=== PATIENT | female | born 1975 | race African-American/Black ===

== ENCOUNTER 2020-08-01 10:48 | Inpatient (IN) | payer OTHER ==
[~2020-08-01] VITALS: Ht 175.3 cm; Wt 101.8 kg
[2020-08-01 11:18] LABS: BILIRUBIN,URINE NEGATIVE (NEG); CLARITY,URINE CLEAR; COLOR,URINE YELLOW; NITRITE,URINE NEGATIVE (NEG); PROTEIN,URINE NEGATIVE (NEG-TRACE); UROBILINOGEN,URINE 0.2 mg/dL (0.2 mg/dL)
[2020-08-01 11:44] LABS: BASO % 0 % (0-3); EOS % 0 % (0-3); HEMATOCRIT 36.4 % (36.0-47.0); HEMOGLOBIN 12.7 g/dL (12.0-15.5); LYMPH # 1.8 x10^3/uL (1.0-4.8); LYMPH % 41 % (24-48); MEAN CORPUSCULAR HEMOGLOBIN 30 pg (25-35); MEAN CORPUSCULAR HGB CONC 35 g/dL (31-37); MEAN CORPUSCULAR VOLUME 85 fL (79-100); MONO # 0.4 x10^3/uL (0.0-1.1); MONO % 8 % (0-9); NEUT # 2.2 x10^3/uL (1.8-7.7); NEUT % 51 % (31-73); PLATELET COUNT 228 x10^3/uL (140-400); RED CELL DISTRIBUTION WIDTH 12.9 % (11.5-14.5); WHITE BLOOD COUNT 4.3 x10^3/uL (4.0-11.0)
[2020-08-01] MEDS ORDERED: PANTOPRAZOLE IV PUSH 40 MG VIAL. IVP ONE (11:45)
[2020-08-01] MEDS ORDERED: fentaNYL PF VIAL 100 MCG/2 ML VIAL IVP ONE (11:45)
--- NOTE | 2020-08-01 11:58 | RAD ---
EXAM: Abdomen acute complete. HISTORY: Pain. COMPARISON: CT dated 07/30/2020. FINDINGS: A frontal view of the chest and frontal upright and supine views of the abdomen are obtaine d. There is no infiltrate, pleural effusion or pneumothorax. The heart is normal in size. There is a small amount of gas within nondistended loops of bowel. There is no bowel obstruction. There is no fr ee air. IMPRESSION: 1. No acute pulmonary finding. 2. Nonobstructive bowel gas pattern. Electronically signed by: Samia Desir MD (08/01/2020 11:55 AM) [id number]
[2020-08-01 12:02] LABS: BACTERIA,URINE 0 /HPF (0-FEW); RBC,URINE 0 /HPF (0-2); WBC,URINE 0 /HPF (0-4)
[2020-08-01 12:11] LABS: PROTHROMBIN TIME PATIENT 13.1 SEC (11.7-14.0)
--- NOTE | 2020-08-01 12:38 | PHYS DOC ---
Past Medical History Past Medical History: Migraines Past Surgical History: , Hysterectomy Smoking Status: Never Smoker Alcohol Use: None General Adult EDM: Chief Complaint: GI PROBLEM HPI: HPI: Patient is a 45 year old female who presented to ER due to 4-day history of epigastric abdominal pain, associated with vomiting blood. Patient was seen at [place] [facility] on July 30 for the same problem, CT scan of her abdomen pelvis did not show any acute problem. Patient was discharged home with Carafate and Adela nix. Patient has been taking the medication but did not get any better, patient went to see her family doctor today who then sent her here for further evaluation and treatment. Patient denies any chest pain, no trouble breathing. Patient is not on any blood thinner. Review of Systems: Review of Systems: Constitutional: Denies fever or chills. [] Eyes: Denies change in visual acuity. [] HENT: Denies nasal congestion or sore throat. [] Respiratory: Denies cough or shortness of breath. [] Cardiovascular: Denies chest pain or edema. [] GI: Positive for epigastric abdominal pain with nausea vomiting, no diarrhea. : Denies dysuria. [] Musculoskeletal: Denies back pain or joint pain. [] Integument: Denies rash. [] Neurologic: Denies headache, focal weakness or sensory changes. [] Endocrine: Denies polyuria or polydipsia. [] Lymphatic: Denies swollen glands. [] Psychiatric: Denies depression or anxiety. [] Heart Score: C/O Chest Pain: N/A Risk Factors: Risk Factors: DM, Current or recent (<one month) smoker, HTN, HLP, family history of CAD, obesity. Risk Scores: Score 0 - 3: 2.5% MACE over next 6 weeks - Discharge Home Score 4 - 6: 20.3% MACE over next 6 weeks - Admit for Clinical Observation Score 7 - 10: 72.7% MACE over next 6 weeks - Early Invasive Strategies Current Medications: Current Medications Medications (Trade) Dose Ordered Sig/Jennifer Start Time Stop Time Status Last Admin Dose Admin Fentanyl Citrate (Fentanyl 2ml Vial) 75 mcg 1X ONCE 08/01/20 11:45 08/01/20 11:46 DC Pantoprazole Sodium (PROTONIX VIAL for IV PUSH) 40 mg 1X ONCE 08/01/20 11:45 08/01/20 11:46 DC Allergies: Allergies: Allergies Coded Allergies Type Severity Reaction Last Updated Verified Sulfa (Sulfonamide Antibiotics) Allergy Severe ANAPHALAXIS 08/01/20 Yes Wmtepcv-Nwz-Ymx Reductase Inhibitor Allergy Intermediate MUSCLE PAIN 08/01/20 Yes morphine Adverse Reaction Intermediate VOMIT 08/01/20 Yes Physical Exam: PE: Constitutional: Well developed, well nourished, no acute distress, non-toxic appearance. [] HENT: Normocephalic, atraumatic, bilateral external ears normal, oropharynx moist, no oral exudates, nose normal. [] Eyes: PERRLA, EOMI, conjunctiva normal, no discharge. [] Neck: Normal range of motion, no tenderness, supple, no stridor. [] Cardiovascular:Heart rate regular rhythm, no murmur [] Lungs & Thorax: Bilateral breath sounds clear to auscultation [] Abdomen: Bowel sounds normal, soft, there is tenderness in epigastric area, no masses, no pulsatile masses. [] Skin: Warm, dry, no erythema, no rash. [] Back: No tenderness, no CVA tenderness. [] Extremities: No tenderness, no cyanosis, no clubbing, ROM intact, no edema. [] Neurologic: Alert and oriented X 3, normal motor function, normal sensory function, no focal deficits noted. [] Psychologic: Affect normal, judgement normal, mood normal. [] Current Patient Data: Labs: Laboratory Tests Test 08/01/20 11:04 08/01/20 11:34 Urine Collection Type Void Urine Color Yellow Urine Clarity Clear Urine pH 7.0 (<5.0-8.0) Urine Specific [place] <=1.005 (1.000-1.030) Urine Protein Negative mg/dL (NEG-TRACE) Urine Glucose (UA) Negative mg/dL (NEG) Urine Ketones (Stick) Negative mg/dL (NEG) Urine Blood Negative (NEG) Urine Nitrite Negative (NEG) Urine Bilirubin Negative (NEG) Urine Urobilinogen Dipstick 0.2 mg/dL (0.2 mg/dL) Urine Leukocyte Esterase Negative (NEG) Urine RBC 0 /HPF (0-2) Urine WBC 0 /HPF (0-4) Urine Squamous Epithelial Cells Mod /LPF Urine Bacteria 0 /HPF (0-FEW) White Blood Count 4.3 x10^3/uL (4.0-11.0) Red Blood Count 4.30 x10^6/uL (3.50-5.40) Hemoglobin 12.7 g/dL (12.0-15.5) Hematocrit 36.4 % (36.0-47.0) Mean Corpuscular Volume 85 fL (79-100) Mean Corpuscular Hemoglobin 30 pg (25-35) Mean Corpuscular Hemoglobin Concent 35 g/dL (31-37) Red Cell Distribution Width 12.9 % (11.5-14.5) Platelet Count 228 x10^3/uL (140-400) Neutrophils (%) (Auto) 51 % (31-73) Lymphocytes (%) (Auto) 41 % (24-48) Monocytes (%) (Auto) 8 % (0-9) Eosinophils (%) (Auto) 0 % (0-3) Basophils (%) (Auto) 0 % (0-3) Neutrophils # (Auto) 2.2 x10^3/uL (1.8-7.7) Lymphocytes # (Auto) 1.8 x10^3/uL (1.0-4.8) Monocytes # (Auto) 0.4 x10^3/uL (0.0-1.1) Eosinophils # (Auto) 0.0 x10^3/uL (0.0-0.7) Basophils # (Auto) 0.0 x10^3/uL (0.0-0.2) Prothrombin Time 13.1 SEC (11.7-14.0) Prothrombin Time INR 1.0 (0.8-1.1) Activated Partial Thromboplast Time 28 SEC (24-38) Laboratory Tests 08/01/20 11:34 Vital Signs: Vital Signs Date Time Temp Pulse Resp B/P (MAP) Pulse Ox O2 Delivery O2 Flow Rate FiO2 08/01/20 11:20 97.9 69 18 142/76 (98) 97 Room Air 97.9 EKG: EKG: [] Radiology/Procedures: Radiology/Procedures: [][address] [address] IMAGING REPORT Signed PATIENT: MYRANDA YO JACCOUNT: [id number] : 1975 LOCATION: ER AGE: 45 SEX: F EXAM STATUS: REG ER ORD. PHYSICIAN: GARRETT MARTÍNEZ MD REASON: hematemsis PROCEDURE: CT ABD PELV W/ IV CONTRST ONLY CT abdomen pelvis with contrast. HISTORY: Hematemesis CT scan the abdomen pelvis was done using 75 mL Omnipaque contrast. Lung bases are clear. There is no effusion. There is a tiny cysts in the left liver. There is mild fatty change in the liver. No other liver lesion is noted. Spleen is generous in size without a focal lesion. Adrenal glands and pancreas are normal. There is no mass or hydronephrosis in the kidneys. Appendix is normal. There are phleboliths in the pelvis. A ureteral calculus is not identified. Patient's had a hysterectomy. There is a tiny cyst or follicle in the left ovary less than a centimeter. There is no free air or free fluid. There is no definite abnormality noted in the stomach. There is no small bowel obstruction. IMPRESSION: 1. Fatty change in the liver. 2. No abdominal or pelvic mass or other acute finding. 3. Normal appendix. 4. No bowel obstruction. 5. No definite abnormality in the stomach. PQRS Compliance Statement: One or more of the following individualized dose reduction techniques were utilized for this examination: 1. Automated exposure control 2. Adjustment of the mA and/or kV according to patient size 3. Use of iterative reconstruction technique Electronically signed by: Shmuel Dumont MD (07/30/2020 4:45 PM) [id number] DICTATED AND SIGNED BY: SHMUEL DUMONT MD DATE: 07/30/20 1635 CC: GARRETT MARTÍNEZ MD; GLORY MONTEIRO [employer] ~MTH0 0 Course & Med Decision Making: Course & Med Decision Making Pertinent Labs and Imaging studies reviewed. (See chart for details) Patient is a 45-year-old female with intractable epigastric abdominal pain, vomiting blood, her hemoglobin actually normal here. Due to her pain, patient be admitted to hospital for GI evaluation. Discussed with hospitalist on-call Dr. Montero who agrees to admit the patient Dragon Disclaimer: Dragon Disclaimer: This electronic medical record was generated, in whole or in part, using a voice recognition dictation system. Departure Departure Impression: Primary Impression: Abdominal pain Additional Impression: Gastritis Disposition: ADMITTED INPT THIS HOSP Admitting Physician: PROMISE (DR. MONETRO) Condition: STABLE Referrals: DALIA AHMADI MD (PCP) TANNER GUNTER DO Aug 01, 2020 12:37
[2020-08-01 12:41] LABS: CREATININE 0.8 mg/dL (0.6-1.0); POTASSIUM 3.8 mmol/L (3.5-5.1)
[2020-08-01 12:48] LABS: ALBUMIN 3.8 g/dL (3.4-5.0); ALBUMIN/GLOBULIN RATIO 1.2 (1.0-1.7); TOTAL BILIRUBIN 0.3 mg/dL (0.2-1.0); TOTAL PROTEIN 7.1 g/dL (6.4-8.2)
[2020-08-01] MEDS ORDERED: fentaNYL PF VIAL 100 MCG/2 ML VIAL IV PRN (13:30)
[2020-08-01] MEDS ORDERED: ONDANSETRON PF 4 MG/2 ML VIAL. IV PRN (13:30)
--- NOTE | 2020-08-01 14:38 | PDOC2 ---
GI CONSULT Date of Service: DATE: 08/01/20 TIME: 14:24 Reason For Consult: epigastric abd pain HPI: HPI: 45 y/o female admitted through ER. [place] sluggish and yucky on Wednesday, then increasingly nauseated Wednesday. No precipitating events. That day, vomited several times - first pinkish, then more red, then very red blood. [place] very weak. Associated w/ pain under left breast radiating into left chest. Pain is stabbing but waxing and waning in intensity. Worst after eating toast this morning. Ongoing nausea. Had one loose stool this morning - no hematochezia or melena. Decreased appetite w/o weight loss for awhile. Rare heartburn after eating certain foods - none recently. Denies dysphagia/odynophagia (though other notes mention dysphagia), chronic n/v or abd pain, diarrhea, or constipation. No previous EGD or colonoscopy. Was told she had a gallstone once but reports a couple ultrasounds since have shown normal GB. No pancreas, liver, or PUD history. Occasional ibuprofen or Tylenol for headahces. [facility] yesterday. Reports CT "ruled out major GI bleed" (I cannot view report - ER note says no acute issues noted) and was discharge home w/ Protonix and Carafate. Follow-up w/ PCP today, concern w/ ongoing symptoms, advised to come here. She says she also called our office and was advised to come to [facility] ER. PMH: PMH: ?high cholesterol, migraines, chronic idiopathic urticaria (on Xolair) x 1, hysterectomy w/ left oophorectomy (on Effexor and estrogen since this), ablations for endometriosis FH: Family History: No pertinent hx (denies GI cancers) Social History: Smoke: No ALCOHOL: none Drugs: None ROS: GEN: Denies fevers, chills, sweats HEENT: Denies blurred vision, sore throat CV: Denies chest pain RESP: Denies shortness of air, cough GI: Per HPI : Denies hematuria, dysuria ENDO: Denies weight changes NEURO: Denies confusion, dizziness MSK: Denies weakness, joint pain/swelling SKIN: Denies jaundice, pruritus Vitals: Vitals: Vital Signs Date Time Temp Pulse Resp B/P (MAP) Pulse Ox O2 Delivery O2 Flow Rate FiO2 08/01/20 13:07 68 18 133/66 (88) 97 Room Air 08/01/20 11:20 97.9 97.9 Labs: Labs: Laboratory Tests Test 08/01/20 11:04 08/01/20 11:34 Urine Collection Type Void Urine Color Yellow Urine Clarity Clear Urine pH 7.0 (<5.0-8.0) Urine Specific [place] <=1.005 (1.000-1.030) Urine Protein Negative mg/dL (NEG-TRACE) Urine Glucose (UA) Negative mg/dL (NEG) Urine Ketones (Stick) Negative mg/dL (NEG) Urine Blood Negative (NEG) Urine Nitrite Negative (NEG) Urine Bilirubin Negative (NEG) Urine Urobilinogen Dipstick 0.2 mg/dL (0.2 mg/dL) Urine Leukocyte Esterase Negative (NEG) Urine RBC 0 /HPF (0-2) Urine WBC 0 /HPF (0-4) Urine Squamous Epithelial Cells Mod /LPF Urine Bacteria 0 /HPF (0-FEW) White Blood Count 4.3 x10^3/uL (4.0-11.0) Red Blood Count 4.30 x10^6/uL (3.50-5.40) Hemoglobin 12.7 g/dL (12.0-15.5) Hematocrit 36.4 % (36.0-47.0) Mean Corpuscular Volume 85 fL (79-100) Mean Corpuscular Hemoglobin 30 pg (25-35) Mean Corpuscular Hemoglobin Concent 35 g/dL (31-37) Red Cell Distribution Width 12.9 % (11.5-14.5) Platelet Count 228 x10^3/uL (140-400) Neutrophils (%) (Auto) 51 % (31-73) Lymphocytes (%) (Auto) 41 % (24-48) Monocytes (%) (Auto) 8 % (0-9) Eosinophils (%) (Auto) 0 % (0-3) Basophils (%) (Auto) 0 % (0-3) Neutrophils # (Auto) 2.2 x10^3/uL (1.8-7.7) Lymphocytes # (Auto) 1.8 x10^3/uL (1.0-4.8) Monocytes # (Auto) 0.4 x10^3/uL (0.0-1.1) Eosinophils # (Auto) 0.0 x10^3/uL (0.0-0.7) Basophils # (Auto) 0.0 x10^3/uL (0.0-0.2) Prothrombin Time 13.1 SEC (11.7-14.0) Prothromb Time International Ratio 1.0 (0.8-1.1) Activated Partial Thromboplast Time 28 SEC (24-38) Sodium Level 138 mmol/L (136-145) Potassium Level 3.8 mmol/L (3.5-5.1) Chloride Level 104 mmol/L (98-107) Carbon Dioxide Level 28 mmol/L (21-32) Anion Gap 6 (6-14) Blood Urea Nitrogen 14 mg/dL (7-20) Creatinine 0.8 mg/dL (0.6-1.0) Estimated GFR (Cockcroft-Gault) 93.0 BUN/Creatinine Ratio 18 (6-20) Glucose Level 86 mg/dL (70-99) Calcium Level 9.0 mg/dL (8.5-10.1) Total Bilirubin 0.3 mg/dL (0.2-1.0) Aspartate Amino Transf (AST/SGOT) 26 U/L (15-37) Alanine Aminotransferase (ALT/SGPT) 63 U/L (14-59) Alkaline Phosphatase 67 U/L (46-116) Total Protein 7.1 g/dL (6.4-8.2) Albumin 3.8 g/dL (3.4-5.0) Albumin/Globulin Ratio 1.2 (1.0-1.7) Allergies: Coded Allergies: Sulfa (Sulfonamide Antibiotics) (Verified Allergy, Severe, ANAPHALAXIS, 08/01/20) Jtchamn-Baz-Fcw Reductase Inhibitor (Verified Allergy, Intermediate, MUSCLE PAIN, 08/01/20) morphine (Verified Adverse Reaction, Intermediate, VOMIT, 08/01/20) Imaging: Imaging: AAS 08/01 IMPRESSION: 1. No acute pulmonary finding. 2. Nonobstructive bowel gas pattern. PE: GEN: NAD HEENT: Atraumatic, PERRL LUNGS: CTAB HEART: RRR ABD: NABS, S/ND, LUQ discomfort under left breast/ribs EXTREMITY: No edema SKIN: No rashes, no jaundice NEURO/PSYCH: A & O 3 A/P: A/P: LUQ/left chest pain, n/v/hematemesis, weakness Elevated ALT Decreased appetite - ongoing CRC screen - average risk -- No bleeding since Wednesday, normal Hgb and BUN, vitals stable. Will review timing of EGD w/ Dr. Oh - inpt vs outpt - seems outpt might be appropriate if bleeding doesn't recur and considering normal labs, etc. Okay to continue PPI and Carafate. Can try clear liquids for now. D/w nurse. SHANTEL BLAKE Aug 01, 2020 14:38
[2020-08-01] MEDS ORDERED: LIDO:MAALOX 1:1 20 ML SINGLE DOSE. PO PRN (15:00)
--- NOTE | 2020-08-01 15:10 | PDOC1 ---
History and Physical Date of Service: DOS: DATE: 08/01/20 TIME: 15:04 Chief Complaint: Chief Complain: Nausea vomiting History of Present Illness: HPI: Patient is a 45-year-old female with past medical history of dyslipidemia, migraines and bradycardia who presents with intractable nausea vomiting 4 days ago. She was seen at [facility] with increasing nausea vomiting and they sent her home with PPI and sucralfate. She went home and felt somewhat better but she continued to have vomiting that day that got worse. The color of her vomit initially looked that strawberry shake but became very red and then eventually coffee-ground in color. Patient has associated epigastric pain and lethargy. She describes her abdominal pain as stabbing that undulates up and down with intensity. Pain is worse after eating. Patient did have normal stools and was formed. She did have a loose watery stool this morning. Denies any bloody or stool or tarry stools. is also in the room and states that he also had some GI symptoms and they had fast food for 2 nights. He is unsure whether this was related or not but wanted to put his input. On normal days. Patient usually does not have any heartburn with eating foods and never has had any diagnosis of gastric reflux disease. The past year patient does express some dysphagia with eating certain foods. However, she does denies any odynophagia chronic nausea vomiting weight loss diarrhea or constipation. She has never had a EGD or colonoscopy. Past Medical/Surgical History: PMH/PSH: Past Medical History: Migraines Past Surgical History: , Hysterectomy Allergies: Allergies: Coded Allergies: Sulfa (Sulfonamide Antibiotics) (Verified Allergy, Severe, ANAPHALAXIS, 08/01/20) Cxlpqfk-Aej-Nll Reductase Inhibitor (Verified Allergy, Intermediate, MUSCLE PAIN, 08/01/20) morphine (Verified Adverse Reaction, Intermediate, VOMIT, 08/01/20) Family History: Family History: Reviewed with no relevant history Social History: Social History: Smoking Status: Never Smoker Alcohol Use: None Current Medications: Current Medications Current Medications Pantoprazole Sodium (PROTONIX VIAL for IV PUSH) 40 mg 1X ONCE IVP ; Start 08/01/20 at 11:45; Stop 08/01/20 at 11:46; Status DC Fentanyl Citrate (Fentanyl 2ml Vial) 75 mcg 1X ONCE IVP ; Start 08/01/20 at 11:45; Stop 08/01/20 at 11:46; Status DC Ondansetron HCl (Zofran) 4 mg PRN Q8HRS PRN IV NAUSEA/VOMITING; Start 08/01/20 at 13:30; Stop 08/02/20 at 13:29 Fentanyl Citrate (Fentanyl 2ml Vial) 50 mcg PRN Q1HR PRN IV PAIN; Start 08/01/20 at 13:30; Stop 08/02/20 at 13:29 Pantoprazole Sodium (PROTONIX VIAL for IV PUSH) 40 mg BIDAC IVP ; Start 08/01/20 at 16:30 Sucralfate (Carafate) 1 gm QIDACHS PO ; Start 08/01/20 at 16:30 Multi-Ingredient Mouthwash/Gargle (Gi Cocktail) 20 ml PRN QID PRN PO chest and abd pain; Start 08/01/20 at 15:00 ROS: Review of Systems Review of System REVIEW OF SYSTEMS: GENERAL: Denies weakness SKIN: No bruising, hair changes or rashes. EYES: No blurred, double or loss of vision. NOSE AND THROAT: No history of nosebleeds, hoarseness or sore throat. HEART: No history of palpitations, chest pain or shortness of breath on exertion. LUNGS: Denies cough, hemoptysis, wheezing or shortness of breath. GASTROINTESTINAL: Denies changes in appetite, nausea, vomiting, diarrhea or constipation. GENITOURINARY: No history of frequency, urgency, hesitancy or nocturia. NEUROLOGIC: Denies history of numbness, tingling, or tremor. PSYCHIATRIC: No history of panic, anxiety or depression. ENDOCRINE: No history of heat or cold intolerance, polyuria or polydipsia. EXTREMITIES: Denies joint pain, pain on walking or stiffness. Physical Exam: Vital Signs: Vital Signs Date Time Temp Pulse Resp B/P (MAP) Pulse Ox O2 Delivery O2 Flow Rate FiO2 08/01/20 13:07 68 18 133/66 (88) 97 Room Air 08/01/20 11:20 97.9 97.9 Physcial Exam: GEN: No apparent distress. Alert and oriented HEENT: Normal cephalic, atraumatic, external auditory canals are patent EYES: Extraocular muscles are intact, pupil are equally round and reactive to light and accommodation MUSCULOSKELETAL: Well developed , well nourished, good range of motion ENDOCRINE: No thyromegaly was palpated LYMPHATICS: No cervical chain or axillary nodes were noted HEMATOPOIETIC: No bruising NECK: Supple, no JVD, no thyromegaly was noted LUNGS: Clear to auscultation in all lung patrick without rhonchi or wheezing HEART: RRR, S!, S2 present. Peripheral pulses intact, no obvious murmurs noted ABDOMEN: Soft, nontender. Positive bowel sounds, no organomegaly, normal bowel sounds EXTREMITIES: Without clubbing, cyanosis, or edema. Pedal pulses intact. Negative Homans sign NEUROLOGIC: Normal speech and tone. A&O x 3, moves all extremities, no obvious focal deficits PSYCHIATRIC: Normal affect, normal mood. Stable SKIN: No ulcerations or rashes, good skin turgor, no jaundice VASCULAR: Good capillary refill, neurovascular bundle appears to be intact Labs: Labs: Laboratory Tests Test 08/01/20 11:04 08/01/20 11:34 Urine Collection Type Void Urine Color Yellow Urine Clarity Clear Urine pH 7.0 (<5.0-8.0) Urine Specific [place] <=1.005 (1.000-1.030) Urine Protein Negative mg/dL (NEG-TRACE) Urine Glucose (UA) Negative mg/dL (NEG) Urine Ketones (Stick) Negative mg/dL (NEG) Urine Blood Negative (NEG) Urine Nitrite Negative (NEG) Urine Bilirubin Negative (NEG) Urine Urobilinogen Dipstick 0.2 mg/dL (0.2 mg/dL) Urine Leukocyte Esterase Negative (NEG) Urine RBC 0 /HPF (0-2) Urine WBC 0 /HPF (0-4) Urine Squamous Epithelial Cells Mod /LPF Urine Bacteria 0 /HPF (0-FEW) White Blood Count 4.3 x10^3/uL (4.0-11.0) Red Blood Count 4.30 x10^6/uL (3.50-5.40) Hemoglobin 12.7 g/dL (12.0-15.5) Hematocrit 36.4 % (36.0-47.0) Mean Corpuscular Volume 85 fL (79-100) Mean Corpuscular Hemoglobin 30 pg (25-35) Mean Corpuscular Hemoglobin Concent 35 g/dL (31-37) Red Cell Distribution Width 12.9 % (11.5-14.5) Platelet Count 228 x10^3/uL (140-400) Neutrophils (%) (Auto) 51 % (31-73) Lymphocytes (%) (Auto) 41 % (24-48) Monocytes (%) (Auto) 8 % (0-9) Eosinophils (%) (Auto) 0 % (0-3) Basophils (%) (Auto) 0 % (0-3) Neutrophils # (Auto) 2.2 x10^3/uL (1.8-7.7) Lymphocytes # (Auto) 1.8 x10^3/uL (1.0-4.8) Monocytes # (Auto) 0.4 x10^3/uL (0.0-1.1) Eosinophils # (Auto) 0.0 x10^3/uL (0.0-0.7) Basophils # (Auto) 0.0 x10^3/uL (0.0-0.2) Prothrombin Time 13.1 SEC (11.7-14.0) Prothromb Time International Ratio 1.0 (0.8-1.1) Activated Partial Thromboplast Time 28 SEC (24-38) Sodium Level 138 mmol/L (136-145) Potassium Level 3.8 mmol/L (3.5-5.1) Chloride Level 104 mmol/L (98-107) Carbon Dioxide Level 28 mmol/L (21-32) Anion Gap 6 (6-14) Blood Urea Nitrogen 14 mg/dL (7-20) Creatinine 0.8 mg/dL (0.6-1.0) Estimated GFR (Cockcroft-Gault) 93.0 BUN/Creatinine Ratio 18 (6-20) Glucose Level 86 mg/dL (70-99) Calcium Level 9.0 mg/dL (8.5-10.1) Total Bilirubin 0.3 mg/dL (0.2-1.0) Aspartate Amino Transf (AST/SGOT) 26 U/L (15-37) Alanine Aminotransferase (ALT/SGPT) 63 U/L (14-59) Alkaline Phosphatase 67 U/L (46-116) Total Protein 7.1 g/dL (6.4-8.2) Albumin 3.8 g/dL (3.4-5.0) Albumin/Globulin Ratio 1.2 (1.0-1.7) Laboratory Tests Test 08/01/20 11:04 08/01/20 11:34 Urine Collection Type Void Urine Color Yellow Urine Clarity Clear Urine pH 7.0 (<5.0-8.0) Urine Specific [place] <=1.005 (1.000-1.030) Urine Protein Negative mg/dL (NEG-TRACE) Urine Glucose (UA) Negative mg/dL (NEG) Urine Ketones (Stick) Negative mg/dL (NEG) Urine Blood Negative (NEG) Urine Nitrite Negative (NEG) Urine Bilirubin Negative (NEG) Urine Urobilinogen Dipstick 0.2 mg/dL (0.2 mg/dL) Urine Leukocyte Esterase Negative (NEG) Urine RBC 0 /HPF (0-2) Urine WBC 0 /HPF (0-4) Urine Squamous Epithelial Cells Mod /LPF Urine Bacteria 0 /HPF (0-FEW) White Blood Count 4.3 x10^3/uL (4.0-11.0) Red Blood Count 4.30 x10^6/uL (3.50-5.40) Hemoglobin 12.7 g/dL (12.0-15.5) Hematocrit 36.4 % (36.0-47.0) Mean Corpuscular Volume 85 fL (79-100) Mean Corpuscular Hemoglobin 30 pg (25-35) Mean Corpuscular Hemoglobin Concent 35 g/dL (31-37) Red Cell Distribution Width 12.9 % (11.5-14.5) Platelet Count 228 x10^3/uL (140-400) Neutrophils (%) (Auto) 51 % (31-73) Lymphocytes (%) (Auto) 41 % (24-48) Monocytes (%) (Auto) 8 % (0-9) Eosinophils (%) (Auto) 0 % (0-3) Basophils (%) (Auto) 0 % (0-3) Neutrophils # (Auto) 2.2 x10^3/uL (1.8-7.7) Lymphocytes # (Auto) 1.8 x10^3/uL (1.0-4.8) Monocytes # (Auto) 0.4 x10^3/uL (0.0-1.1) Eosinophils # (Auto) 0.0 x10^3/uL (0.0-0.7) Basophils # (Auto) 0.0 x10^3/uL (0.0-0.2) Prothrombin Time 13.1 SEC (11.7-14.0) Prothromb Time International Ratio 1.0 (0.8-1.1) Activated Partial Thromboplast Time 28 SEC (24-38) Sodium Level 138 mmol/L (136-145) Potassium Level 3.8 mmol/L (3.5-5.1) Chloride Level 104 mmol/L (98-107) Carbon Dioxide Level 28 mmol/L (21-32) Anion Gap 6 (6-14) Blood Urea Nitrogen 14 mg/dL (7-20) Creatinine 0.8 mg/dL (0.6-1.0) Estimated GFR (Cockcroft-Gault) 93.0 BUN/Creatinine Ratio 18 (6-20) Glucose Level 86 mg/dL (70-99) Calcium Level 9.0 mg/dL (8.5-10.1) Total Bilirubin 0.3 mg/dL (0.2-1.0) Aspartate Amino Transf (AST/SGOT) 26 U/L (15-37) Alanine Aminotransferase (ALT/SGPT) 63 U/L (14-59) Alkaline Phosphatase 67 U/L (46-116) Total Protein 7.1 g/dL (6.4-8.2) Albumin 3.8 g/dL (3.4-5.0) Albumin/Globulin Ratio 1.2 (1.0-1.7) Images: Images Abdominal x-ray IMPRESSION: 1. No acute pulmonary finding. 2. Nonobstructive bowel gas pattern. Assessment/Plan Assessment/Plan Intractable nausea vomiting, possible gastritis versus gastric ulcer Elevated ALT History of migraines History of chronic urticaria, currently on Xolair shots Admit to medicine for further management Unable to discharge home due to unable to tolerate foods or liquids. GI consult We will try clear liquids per GI Pending EGD evaluation possible inpatient versus outpatient Contraindicated for DVT prophylaxis Protonix GI prophylaxis ADA diet Full code Discussed with RN and SW Disposition inpatient management as above Surrogate decision maker is the Justifications for Admission Other Justification VU MCGHEE MD Aug 01, 2020 15:10
[2020-08-01] MEDS ORDERED: ACETAMINOPHEN 325 MG TABLET. PO PRN (15:15)
[2020-08-01] MEDS ORDERED: DEXTROSE 50% 25 GM / 50ML DISP.SYRIN. IV PRN (15:15)
[2020-08-01] MEDS ORDERED: SENNOSIDES 8.6 MG TABLET PO PRN (15:15)
[2020-08-01] MEDS ORDERED: DOCUSATE SODIUM 100 MG CAPSULE. PO PRN (15:15)
[2020-08-01 15:16] VITALS: BP 155/68
[2020-08-01] MEDS ORDERED: ESTR1TAB39 PO (16:47)
[2020-08-01] MEDS ORDERED: VENL150C PO (16:47)
[2020-08-01] MEDS: SUCRALFATE 1 GM/10 ML ORAL.SUSP. PO SCH ×2 (17:09→20:38)
[2020-08-01] MEDS: PANTOPRAZOLE IV PUSH 40 MG VIAL. IVP SCH (17:10)
[2020-08-01] MEDS: IV NORMAL SALINE 1000ML BAG 1,000 ML IV SCH (17:10)
[2020-08-01] MEDS ORDERED: ESTR1TAB17 PO (17:11)
[2020-08-01 19:00] VITALS: BP 126/69
[2020-08-01] MEDS: ONDANSETRON PF 4 MG/2 ML VIAL. IVP PRN (20:38)
[2020-08-01 23:00] VITALS: BP 118/63
[2020-08-02] MEDS: IV NORMAL SALINE 1000ML BAG 1,000 ML IV SCH (02:06)
[2020-08-02 03:00] VITALS: BP 128/76
[2020-08-02 06:35] LABS: BASO % 0 % (0-3); EOS % 0 % (0-3); HEMATOCRIT 35.8 % (36.0-47.0); HEMOGLOBIN 12.5 g/dL (12.0-15.5); LYMPH # 1.5 x10^3/uL (1.0-4.8); LYMPH % 40 % (24-48); MEAN CORPUSCULAR HEMOGLOBIN 30 pg (25-35); MEAN CORPUSCULAR HGB CONC 35 g/dL (31-37); MEAN CORPUSCULAR VOLUME 86 fL (79-100); MONO # 0.3 x10^3/uL (0.0-1.1); MONO % 8 % (0-9); NEUT % 52 % (31-73); PLATELET COUNT 222 x10^3/uL (140-400); RED BLOOD COUNT 4.18 x10^6/uL (3.50-5.40); RED CELL DISTRIBUTION WIDTH 12.2 % (11.5-14.5); WHITE BLOOD COUNT 3.8 x10^3/uL (4.0-11.0)
[2020-08-02 06:59] LABS: CALCIUM 8.3 mg/dL (8.5-10.1); CREATININE 0.8 mg/dL (0.6-1.0); MAGNESIUM 2.3 mg/dL (1.8-2.4); PHOSPHORUS 3.4 mg/dL (2.6-4.7); POTASSIUM 3.8 mmol/L (3.5-5.1)
[2020-08-02 07:00] VITALS: BP 137/85
[2020-08-02] MEDS: SUCRALFATE 1 GM/10 ML ORAL.SUSP. PO SCH ×2 (07:30→11:30)
--- NOTE | 2020-08-02 07:48 | RAD ---
EXAMINATION: US ABDOMEN COMPLETE 08/02/2020 5:00 AM INDICATION: Abdominal pain, nausea and vomiting TECHNIQUE: [place] scale and color Doppler ultrasound images of the abdomen were obtained. COMPARISON: CT abdomen and pelvis 07/30/2020. FINDINGS: Liver: The liver is normal in size measuring 17.5 cm in length. There is diffusely increased hepatic echogenicity. No focal liver lesion. Gallbladder: The gallbladder is normal in caliber. Shadowing calculus in the gallbladder lumen. The gallbladder wall is normal in thickness measuring 3 mm. Bile ducts: The common bile duct is normal measuring 5 mm. No intrahepatic biliary duct dilatation. Kidneys: The right kidney measures 12.0 x 4.6 x 3.7 cm. The left kidney measures 12.5 x 4.7 x 2.9 cm . Normal cortical thickness and echogenicity bilaterally. No hydronephrosis. Spleen: Spleen is mildly enlarged measuring 14.3 cm Other: Abdominal aorta and inferior vena cava are normal where visualized. The pancreas is normal wh ere visualized. IMPRESSION: 1. Cholelithiasis. 2. Hepatic steatosis. 3. Mild splenomegaly. Electronically signed by: Aliyah Conley MD (08/02/2020 7:45 AM) [id number]
--- NOTE | 2020-08-02 08:34 | PDOC ---
PROGRESS NOTES Date of Service: DATE: 08/02/20 TIME: 08:33 Chief Complaint Chief Complaint Images: Images Abdominal x-ray IMPRESSION: 1. No acute pulmonary finding. 2. Nonobstructive bowel gas pattern. Assessment/Plan Assessment/Plan Intractable nausea vomiting, possible gastritis versus gastric ulcer Elevated ALT History of migraines History of chronic urticaria, currently on Xolair shots PLAN Admit to medicine for further management Unable to discharge home due to unable to tolerate foods or liquids. GI consult SURGERY CONSULT We will try clear liquids per GI Pending EGD evaluation possible inpatient versus outpatient Contraindicated for DVT prophylaxis Protonix GI prophylaxis ADA diet Full code Discussed with RN and SW Disposition inpatient management as above Surrogate decision maker is the consider elective cholecystectomy if not improved. 312 HOME TODAY ON PPI D/C PLANNING 36 MIN Justifications for Admission Justifications for Admission Other Justification History of Present Illness History of Present Illness Chief Complaint: Chief Complain: Nausea vomiting History of Present Illness: HPI: Patient is a 45-year-old female with past medical history of dyslipidemia, migr aines and bradycardia who presents with intractable nausea vomiting 4 days ago. She was seen at [facility] with increasing nausea vomiting and they sent her home with PPI and sucralfate. She went home and felt somewhat better but she continued to have vomiting that day that got worse. The color of her vomit initially looked that strawberry shake but became very red and then eventually coffee-ground in color. Patient has associated epigastric pain and lethargy. She describes her abdominal pain as stabbing that undulates up and down with intensity. Pain is worse after eating. Patient did have normal stools and was formed. She did have a loose watery stool this morning. Denies any bloody or stool or tarry stools. is also in the room and states that he also had some GI symptoms and they had fast food for 2 nights. He is unsure whether this was related or not but wanted to put his input. On normal days. Patient usually does not have any heartburn with eating foods and never has had any diagnosis of gastric reflux disease. The past year patient does express some dysphagia with eating certain foods. However, she does denies any odynophagia chronic nausea vomiting weight loss diarrhea or constipation. She has never had a EGD or colonoscopy. Past Medical/Surgical History: PMH/PSH: Past Medical History: Migraines Past Surgical History: , Hysterectomy Allergies: Allergies: Coded Allergies: Sulfa (Sulfonamide Antibiotics) (Verified Allergy, Severe, ANAPHALAXIS, 08/01/20) Xtkuurz-Eay-Dmu Reductase Inhibitor (Verified Allergy, Intermediate, MUSCLE PAIN, 08/01/20) morphine (Verified Adverse Reaction, Intermediate, VOMIT, 08/01/20) Family History: Family History: Reviewed with no relevant history Social History: Social History: Smoking Status: Never Smoker Alcohol Use: None Current Medications: Current Medications Current Medications Pantoprazole Sodium (PROTONIX VIAL for IV PUSH) 40 mg 1X ONCE IVP ; Start 08/01/20 at 11:45; Stop 08/01/20 at 11:46; Status DC Fentanyl Citrate (Fentanyl 2ml Vial) 75 mcg 1X ONCE IVP ; Start 08/01/20 at 11:45; Stop 08/01/20 at 11:46; Status DC Ondansetron HCl (Zofran) 4 mg PRN Q8HRS PRN IV NAUSEA/VOMITING; Start 08/01/20 at 13:30; Stop 08/02/20 at 13:29 Fentanyl Citrate (Fentanyl 2ml Vial) 50 mcg PRN Q1HR PRN IV PAIN; Start 08/01/20 at 13:30; Stop 08/02/20 at 13:29 Pantoprazole Sodium (PROTONIX VIAL for IV PUSH) 40 mg BIDAC IVP ; Start 08/01/20 at 16:30 Sucralfate (Carafate) 1 gm QIDACHS PO ; Start 08/01/20 at 16:30 Multi-Ingredient Mouthwash/Gargle (Gi Cocktail) 20 ml PRN QID PRN PO chest and abd pain; Start 08/01/20 at 15:00 ROS: Review of Systems Review of System REVIEW OF SYSTEMS: GENERAL: Denies weakness SKIN: No bruising, hair changes or rashes. EYES: No blurred, double or loss of vision. NOSE AND THROAT: No history of nosebleeds, hoarseness or sore throat. HEART: No history of palpitations, chest pain or shortness of breath on exertion. LUNGS: Denies cough, hemoptysis, wheezing or shortness of breath. GASTROINTESTINAL: Denies changes in appetite, nausea, vomiting, diarrhea or constipation. GENITOURINARY: No history of frequency, urgency, hesitancy or nocturia. NEUROLOGIC: Denies history of numbness, tingling, or tremor. PSYCHIATRIC: No history of panic, anxiety or depression. ENDOCRINE: No history of heat or cold intolerance, polyuria or polydipsia. EXTREMITIES: Denies joint pain, pain on walking or stiffness. Vitals Vitals Vital Signs Date Time Temp Pulse Resp B/P (MAP) Pulse Ox O2 Delivery O2 Flow Rate FiO2 08/02/20 07:00 97.7 69 16 137/85 (102) 97 Room Air 97.7 Physical Exam Physical Exam Physcial Exam: GEN: No apparent distress. Alert and oriented HEENT: Normal cephalic, atraumatic, external auditory canals are patent EYES: Extraocular muscles are intact, pupil are equally round and reactive to light and accommodation MUSCULOSKELETAL: Well developed , well nourished, good range of motion ENDOCRINE: No thyromegaly was palpated LYMPHATICS: No cervical chain or axillary nodes were noted HEMATOPOIETIC: No bruising NECK: Supple, no JVD, no thyromegaly was noted LUNGS: Clear to auscultation in all lung patrick without rhonchi or wheezing HEART: RRR, S!, S2 present. Peripheral pulses intact, no obvious murmurs noted ABDOMEN: Soft, nontender. Positive bowel sounds, no organomegaly, normal bowel sounds EXTREMITIES: Without clubbing, cyanosis, or edema. Pedal pulses intact. Negative Homans sign NEUROLOGIC: Normal speech and tone. A&O x 3, moves all extremities, no obvious focal deficits PSYCHIATRIC: Normal affect, normal mood. Stable SKIN: No ulcerations or rashes, good skin turgor, no jaundice VASCULAR: Good capillary refill, neurovascular bundle appears to be intact General: Alert, Oriented X3, Cooperative, No acute distress Heart: Regular rate Lungs: Clear Abdomen: Normal bowel sounds, Soft Extremities: No clubbing, No cyanosis Labs LABS Laboratory Tests Test 08/01/20 11:04 08/01/20 11:34 08/02/20 05:50 Urine Collection Type Void Urine Color Yellow Urine Clarity Clear Urine pH 7.0 (<5.0-8.0) Urine Specific [place] <=1.005 (1.000-1.030) Urine Protein Negative mg/dL (NEG-TRACE) Urine Glucose (UA) Negative mg/dL (NEG) Urine Ketones (Stick) Negative mg/dL (NEG) Urine Blood Negative (NEG) Urine Nitrite Negative (NEG) Urine Bilirubin Negative (NEG) Urine Urobilinogen Dipstick 0.2 mg/dL (0.2 mg/dL) Urine Leukocyte Esterase Negative (NEG) Urine RBC 0 /HPF (0-2) Urine WBC 0 /HPF (0-4) Urine Squamous Epithelial Cells Mod /LPF Urine Bacteria 0 /HPF (0-FEW) White Blood Count 4.3 x10^3/uL (4.0-11.0) 3.8 x10^3/uL (4.0-11.0) Red Blood Count 4.30 x10^6/uL (3.50-5.40) 4.18 x10^6/uL (3.50-5.40) Hemoglobin 12.7 g/dL (12.0-15.5) 12.5 g/dL (12.0-15.5) Hematocrit 36.4 % (36.0-47.0) 35.8 % (36.0-47.0) Mean Corpuscular Volume 85 fL (79-100) 86 fL (79-100) Mean Corpuscular Hemoglobin 30 pg (25-35) 30 pg (25-35) Mean Corpuscular Hemoglobin Concent 35 g/dL (31-37) 35 g/dL (31-37) Red Cell Distribution Width 12.9 % (11.5-14.5) 12.2 % (11.5-14.5) Platelet Count 228 x10^3/uL (140-400) 222 x10^3/uL (140-400) Neutrophils (%) (Auto) 51 % (31-73) 52 % (31-73) Lymphocytes (%) (Auto) 41 % (24-48) 40 % (24-48) Monocytes (%) (Auto) 8 % (0-9) 8 % (0-9) Eosinophils (%) (Auto) 0 % (0-3) 0 % (0-3) Basophils (%) (Auto) 0 % (0-3) 0 % (0-3) Neutrophils # (Auto) 2.2 x10^3/uL (1.8-7.7) 2.0 x10^3/uL (1.8-7.7) Lymphocytes # (Auto) 1.8 x10^3/uL (1.0-4.8) 1.5 x10^3/uL (1.0-4.8) Monocytes # (Auto) 0.4 x10^3/uL (0.0-1.1) 0.3 x10^3/uL (0.0-1.1) Eosinophils # (Auto) 0.0 x10^3/uL (0.0-0.7) 0.0 x10^3/uL (0.0-0.7) Basophils # (Auto) 0.0 x10^3/uL (0.0-0.2) 0.0 x10^3/uL (0.0-0.2) Prothrombin Time 13.1 SEC (11.7-14.0) Prothromb Time International Ratio 1.0 (0.8-1.1) Activated Partial Thromboplast Time 28 SEC (24-38) Sodium Level 138 mmol/L (136-145) 143 mmol/L (136-145) Potassium Level 3.8 mmol/L (3.5-5.1) 3.8 mmol/L (3.5-5.1) Chloride Level 104 mmol/L (98-107) 105 mmol/L (98-107) Carbon Dioxide Level 28 mmol/L (21-32) 30 mmol/L (21-32) Anion Gap 6 (6-14) 8 (6-14) Blood Urea Nitrogen 14 mg/dL (7-20) 11 mg/dL (7-20) Creatinine 0.8 mg/dL (0.6-1.0) 0.8 mg/dL (0.6-1.0) Estimated GFR (Cockcroft-Gault) 93.0 93.0 BUN/Creatinine Ratio 18 (6-20) Glucose Level 86 mg/dL (70-99) 93 mg/dL (70-99) Calcium Level 9.0 mg/dL (8.5-10.1) 8.3 mg/dL (8.5-10.1) Total Bilirubin 0.3 mg/dL (0.2-1.0) Aspartate Amino Transf (AST/SGOT) 26 U/L (15-37) Alanine Aminotransferase (ALT/SGPT) 63 U/L (14-59) Alkaline Phosphatase 67 U/L (46-116) Total Protein 7.1 g/dL (6.4-8.2) Albumin 3.8 g/dL (3.4-5.0) Albumin/Globulin Ratio 1.2 (1.0-1.7) Phosphorus Level 3.4 mg/dL (2.6-4.7) Magnesium Level 2.3 mg/dL (1.8-2.4) Assessment and Plan Assessmemt and Plan Problems Medical Problems: (1) Abdominal pain Status: Acute (2) Gastritis Status: Acute Comment Review of Relevant I have reviewed the following items erasto (where applicable) has been applied. Labs Laboratory Tests Test 08/01/20 11:04 08/01/20 11:34 08/02/20 05:50 Urine Collection Type Void Urine Color Yellow Urine Clarity Clear Urine pH 7.0 (<5.0-8.0) Urine Specific [place] <=1.005 (1.000-1.030) Urine Protein Negative mg/dL (NEG-TRACE) Urine Glucose (UA) Negative mg/dL (NEG) Urine Ketones (Stick) Negative mg/dL (NEG) Urine Blood Negative (NEG) Urine Nitrite Negative (NEG) Urine Bilirubin Negative (NEG) Urine Urobilinogen Dipstick 0.2 mg/dL (0.2 mg/dL) Urine Leukocyte Esterase Negative (NEG) Urine RBC 0 /HPF (0-2) Urine WBC 0 /HPF (0-4) Urine Squamous Epithelial Cells Mod /LPF Urine Bacteria 0 /HPF (0-FEW) White Blood Count 4.3 x10^3/uL (4.0-11.0) 3.8 x10^3/uL (4.0-11.0) Red Blood Count 4.30 x10^6/uL (3.50-5.40) 4.18 x10^6/uL (3.50-5.40) Hemoglobin 12.7 g/dL (12.0-15.5) 12.5 g/dL (12.0-15.5) Hematocrit 36.4 % (36.0-47.0) 35.8 % (36.0-47.0) Mean Corpuscular Volume 85 fL (79-100) 86 fL (79-100) Mean Corpuscular Hemoglobin 30 pg (25-35) 30 pg (25-35) Mean Corpuscular Hemoglobin Concent 35 g/dL (31-37) 35 g/dL (31-37) Red Cell Distribution Width 12.9 % (11.5-14.5) 12.2 % (11.5-14.5) Platelet Count 228 x10^3/uL (140-400) 222 x10^3/uL (140-400) Neutrophils (%) (Auto) 51 % (31-73) 52 % (31-73) Lymphocytes (%) (Auto) 41 % (24-48) 40 % (24-48) Monocytes (%) (Auto) 8 % (0-9) 8 % (0-9) Eosinophils (%) (Auto) 0 % (0-3) 0 % (0-3) Basophils (%) (Auto) 0 % (0-3) 0 % (0-3) Neutrophils # (Auto) 2.2 x10^3/uL (1.8-7.7) 2.0 x10^3/uL (1.8-7.7) Lymphocytes # (Auto) 1.8 x10^3/uL (1.0-4.8) 1.5 x10^3/uL (1.0-4.8) Monocytes # (Auto) 0.4 x10^3/uL (0.0-1.1) 0.3 x10^3/uL (0.0-1.1) Eosinophils # (Auto) 0.0 x10^3/uL (0.0-0.7) 0.0 x10^3/uL (0.0-0.7) Basophils # (Auto) 0.0 x10^3/uL (0.0-0.2) 0.0 x10^3/uL (0.0-0.2) Prothrombin Time 13.1 SEC (11.7-14.0) Prothromb Time International Ratio 1.0 (0.8-1.1) Activated Partial Thromboplast Time 28 SEC (24-38) Sodium Level 138 mmol/L (136-145) 143 mmol/L (136-145) Potassium Level 3.8 mmol/L (3.5-5.1) 3.8 mmol/L (3.5-5.1) Chloride Level 104 mmol/L (98-107) 105 mmol/L (98-107) Carbon Dioxide Level 28 mmol/L (21-32) 30 mmol/L (21-32) Anion Gap 6 (6-14) 8 (6-14) Blood Urea Nitrogen 14 mg/dL (7-20) 11 mg/dL (7-20) Creatinine 0.8 mg/dL (0.6-1.0) 0.8 mg/dL (0.6-1.0) Estimated GFR (Cockcroft-Gault) 93.0 93.0 BUN/Creatinine Ratio 18 (6-20) Glucose Level 86 mg/dL (70-99) 93 mg/dL (70-99) Calcium Level 9.0 mg/dL (8.5-10.1) 8.3 mg/dL (8.5-10.1) Total Bilirubin 0.3 mg/dL (0.2-1.0) Aspartate Amino Transf (AST/SGOT) 26 U/L (15-37) Alanine Aminotransferase (ALT/SGPT) 63 U/L (14-59) Alkaline Phosphatase 67 U/L (46-116) Total Protein 7.1 g/dL (6.4-8.2) Albumin 3.8 g/dL (3.4-5.0) Albumin/Globulin Ratio 1.2 (1.0-1.7) Phosphorus Level 3.4 mg/dL (2.6-4.7) Magnesium Level 2.3 mg/dL (1.8-2.4) Laboratory Tests Test 08/01/20 11:04 08/01/20 11:34 08/02/20 05:50 Urine Collection Type Void Urine Color Yellow Urine Clarity Clear Urine pH 7.0 (<5.0-8.0) Urine Specific [place] <=1.005 (1.000-1.030) Urine Protein Negative mg/dL (NEG-TRACE) Urine Glucose (UA) Negative mg/dL (NEG) Urine Ketones (Stick) Negative mg/dL (NEG) Urine Blood Negative (NEG) Urine Nitrite Negative (NEG) Urine Bilirubin Negative (NEG) Urine Urobilinogen Dipstick 0.2 mg/dL (0.2 mg/dL) Urine Leukocyte Esterase Negative (NEG) Urine RBC 0 /HPF (0-2) Urine WBC 0 /HPF (0-4) Urine Squamous Epithelial Cells Mod /LPF Urine Bacteria 0 /HPF (0-FEW) White Blood Count 4.3 x10^3/uL (4.0-11.0) 3.8 x10^3/uL (4.0-11.0) Red Blood Count 4.30 x10^6/uL (3.50-5.40) 4.18 x10^6/uL (3.50-5.40) Hemoglobin 12.7 g/dL (12.0-15.5) 12.5 g/dL (12.0-15.5) Hematocrit 36.4 % (36.0-47.0) 35.8 % (36.0-47.0) Mean Corpuscular Volume 85 fL (79-100) 86 fL (79-100) Mean Corpuscular Hemoglobin 30 pg (25-35) 30 pg (25-35) Mean Corpuscular Hemoglobin Concent 35 g/dL (31-37) 35 g/dL (31-37) Red Cell Distribution Width 12.9 % (11.5-14.5) 12.2 % (11.5-14.5) Platelet Count 228 x10^3/uL (140-400) 222 x10^3/uL (140-400) Neutrophils (%) (Auto) 51 % (31-73) 52 % (31-73) Lymphocytes (%) (Auto) 41 % (24-48) 40 % (24-48) Monocytes (%) (Auto) 8 % (0-9) 8 % (0-9) Eosinophils (%) (Auto) 0 % (0-3) 0 % (0-3) Basophils (%) (Auto) 0 % (0-3) 0 % (0-3) Neutrophils # (Auto) 2.2 x10^3/uL (1.8-7.7) 2.0 x10^3/uL (1.8-7.7) Lymphocytes # (Auto) 1.8 x10^3/uL (1.0-4.8) 1.5 x10^3/uL (1.0-4.8) Monocytes # (Auto) 0.4 x10^3/uL (0.0-1.1) 0.3 x10^3/uL (0.0-1.1) Eosinophils # (Auto) 0.0 x10^3/uL (0.0-0.7) 0.0 x10^3/uL (0.0-0.7) Basophils # (Auto) 0.0 x10^3/uL (0.0-0.2) 0.0 x10^3/uL (0.0-0.2) Prothrombin Time 13.1 SEC (11.7-14.0) Prothromb Time International Ratio 1.0 (0.8-1.1) Activated Partial Thromboplast Time 28 SEC (24-38) Sodium Level 138 mmol/L (136-145) 143 mmol/L (136-145) Potassium Level 3.8 mmol/L (3.5-5.1) 3.8 mmol/L (3.5-5.1) Chloride Level 104 mmol/L (98-107) 105 mmol/L (98-107) Carbon Dioxide Level 28 mmol/L (21-32) 30 mmol/L (21-32) Anion Gap 6 (6-14) 8 (6-14) Blood Urea Nitrogen 14 mg/dL (7-20) 11 mg/dL (7-20) Creatinine 0.8 mg/dL (0.6-1.0) 0.8 mg/dL (0.6-1.0) Estimated GFR (Cockcroft-Gault) 93.0 93.0 BUN/Creatinine Ratio 18 (6-20) Glucose Level 86 mg/dL (70-99) 93 mg/dL (70-99) Calcium Level 9.0 mg/dL (8.5-10.1) 8.3 mg/dL (8.5-10.1) Total Bilirubin 0.3 mg/dL (0.2-1.0) Aspartate Amino Transf (AST/SGOT) 26 U/L (15-37) Alanine Aminotransferase (ALT/SGPT) 63 U/L (14-59) Alkaline Phosphatase 67 U/L (46-116) Total Protein 7.1 g/dL (6.4-8.2) Albumin 3.8 g/dL (3.4-5.0) Albumin/Globulin Ratio 1.2 (1.0-1.7) Phosphorus Level 3.4 mg/dL (2.6-4.7) Magnesium Level 2.3 mg/dL (1.8-2.4) Medications Current Medications Pantoprazole Sodium (PROTONIX VIAL for IV PUSH) 40 mg 1X ONCE IVP ; Start 08/01/20 at 11:45; Stop 08/01/20 at 11:46; Status DC Fentanyl Citrate (Fentanyl 2ml Vial) 75 mcg 1X ONCE IVP ; Start 08/01/20 at 11:45; Stop 08/01/20 at 11:46; Status DC Ondansetron HCl (Zofran) 4 mg PRN Q8HRS PRN IV NAUSEA/VOMITING; Start 08/01/20 at 13:30; Stop 08/02/20 at 13:29 Fentanyl Citrate (Fentanyl 2ml Vial) 50 mcg PRN Q1HR PRN IV PAIN Last administered on 08/01/20at 20:39; Start 08/01/20 at 13:30; Stop 08/02/20 at 13:29 Pantoprazole Sodium (PROTONIX VIAL for IV PUSH) 40 mg BIDAC IVP Last administered on 08/01/20at 17:10; Start 08/01/20 at 16:30 Sucralfate (Carafate) 1 gm QIDACHS PO Last administered on 08/01/20at 20:38; Start 08/01/20 at 16:30 Multi-Ingredient Mouthwash/Gargle (Gi Cocktail) 20 ml PRN QID PRN PO chest and abd pain; Start 08/01/20 at 15:00 Sennosides (Senna) 17.2 mg PRN BID PRN PO CONSTIPATION; Start 08/01/20 at 15:15 Docusate Sodium (Colace) 100 mg PRN DAILY PRN PO HARD STOOLS; Start 08/01/20 at 15:15 Ondansetron HCl (Zofran) 4 mg PRN Q6HRS PRN IVP NAUSEA/VOMITING Last administered on 08/01/20at 20:38; Start 08/01/20 at 15:15 Dextrose (Dextrose 50%-Water Syringe) 12.5 gm PRN Q15MIN PRN IV SEE COMMENTS; Start 08/01/20 at 15:15 Sodium Chloride 1,000 ml @ 100 mls/hr Q10H IV Last administered on 08/02/20at 02:06; Start 08/01/20 at 15:15 Acetaminophen (Tylenol) 650 mg PRN Q4HRS PRN PO TEMP OVER 100.4F OR MILD PAIN; Start 08/01/20 at 15:15 Active Scripts Active Reported Estrace (Estradiol) 1 Mg Tablet 1 Tab PO DAILY Effexor Xr (Venlafaxine Hcl) 150 Mg Cap.er.24h 0.5 Cap PO DAILY Vitals/I & O Vital Sign - Last 24 Hours 08/01/20 08/01/20 08/01/20 08/01/20 11:20 12:07 12:37 13:07 Temp 97.9 97.9 Pulse 69 70 68 Resp 18 18 18 B/P (MAP) 142/76 (98) 148/67 (94) 130/68 (88) 133/66 (88) Pulse Ox 97 95 97 O2 Delivery Room Air Room Air Room Air 08/01/20 08/01/20 08/01/20 08/01/20 15:16 19:00 20:39 21:10 Temp 98.2 98.1 98.2 98.1 Pulse 65 66 B/P (MAP) 155/68 (97) 126/69 (88) Pulse Ox 96 97 O2 Delivery Room Air Room Air Room Air Room Air 08/01/20 08/02/20 08/02/20 23:00 03:00 07:00 Temp 98.1 98.0 97.7 98.1 98.0 97.7 Pulse 65 62 69 Resp 16 20 16 B/P (MAP) 118/63 (81) 128/76 (93) 137/85 (102) Pulse Ox 95 97 97 O2 Delivery Room Air Room Air Room Air Intake and Output 08/01/20 08/01/20 08/02/20 15:00 23:00 07:00 Output Total 0 ml Balance 0 ml Justicifation of Admission Dx: Justifications for Admission: Justification of Admission Dx: No Comments: STEPHEN PEREZ MD Aug 02, 2020 08:34
--- NOTE | 2020-08-02 09:32 | NUR ---
SW following. Discussed with RN, pt from home with family, room air, clear liquid diet. GI following - pt having a HIDA scan. RN advised no SW needs at this time. SW will continue to follow.
[2020-08-02] MEDS: PANTOPRAZOLE IV PUSH 40 MG VIAL. IVP SCH (09:40)
--- NOTE | 2020-08-02 10:40 | PDOC ---
Date of Service: DATE: 08/02/20 TIME: 10:36 Subjective: Subjective: Feels better today, tolerated liquids last night. No pain currently. Asks if she could go home today. She reports pain is pretty much mostly in LUQ - might go across upper abdomen sometimes but she's not sure. Objective: Vital Signs: Vital Signs Date Time Temp Pulse Resp B/P (MAP) Pulse Ox O2 Delivery O2 Flow Rate FiO2 08/02/20 07:00 97.7 69 16 137/85 (102) 97 Room Air 97.7 Labs: Laboratory Tests Test 08/01/20 11:04 08/01/20 11:34 08/02/20 05:50 Urine Collection Type Void Urine Color Yellow Urine Clarity Clear Urine pH 7.0 Urine Specific [place] <=1.005 Urine Protein Negative mg/dL Urine Glucose (UA) Negative mg/dL Urine Ketones (Stick) Negative mg/dL Urine Blood Negative Urine Nitrite Negative Urine Bilirubin Negative Urine Urobilinogen Dipstick 0.2 mg/dL Urine Leukocyte Esterase Negative Urine RBC 0 /HPF Urine WBC 0 /HPF Urine Squamous Epithelial Cells Mod /LPF Urine Bacteria 0 /HPF White Blood Count 4.3 x10^3/uL 3.8 x10^3/uL Red Blood Count 4.30 x10^6/uL 4.18 x10^6/uL Hemoglobin 12.7 g/dL 12.5 g/dL Hematocrit 36.4 % 35.8 % Mean Corpuscular Volume 85 fL 86 fL Mean Corpuscular Hemoglobin 30 pg 30 pg Mean Corpuscular Hemoglobin Concent 35 g/dL 35 g/dL Red Cell Distribution Width 12.9 % 12.2 % Platelet Count 228 x10^3/uL 222 x10^3/uL Neutrophils (%) (Auto) 51 % 52 % Lymphocytes (%) (Auto) 41 % 40 % Monocytes (%) (Auto) 8 % 8 % Eosinophils (%) (Auto) 0 % 0 % Basophils (%) (Auto) 0 % 0 % Neutrophils # (Auto) 2.2 x10^3/uL 2.0 x10^3/uL Lymphocytes # (Auto) 1.8 x10^3/uL 1.5 x10^3/uL Monocytes # (Auto) 0.4 x10^3/uL 0.3 x10^3/uL Eosinophils # (Auto) 0.0 x10^3/uL 0.0 x10^3/uL Basophils # (Auto) 0.0 x10^3/uL 0.0 x10^3/uL Prothrombin Time 13.1 SEC Prothromb Time International Ratio 1.0 Activated Partial Thromboplast Time 28 SEC Sodium Level 138 mmol/L 143 mmol/L Potassium Level 3.8 mmol/L 3.8 mmol/L Chloride Level 104 mmol/L 105 mmol/L Carbon Dioxide Level 28 mmol/L 30 mmol/L Anion Gap 6 8 Blood Urea Nitrogen 14 mg/dL 11 mg/dL Creatinine 0.8 mg/dL 0.8 mg/dL Estimated GFR (Cockcroft-Gault) 93.0 93.0 BUN/Creatinine Ratio 18 Glucose Level 86 mg/dL 93 mg/dL Calcium Level 9.0 mg/dL 8.3 mg/dL Total Bilirubin 0.3 mg/dL Aspartate Amino Transf (AST/SGOT) 26 U/L Alanine Aminotransferase (ALT/SGPT) 63 U/L Alkaline Phosphatase 67 U/L Total Protein 7.1 g/dL Albumin 3.8 g/dL Albumin/Globulin Ratio 1.2 Phosphorus Level 3.4 mg/dL Magnesium Level 2.3 mg/dL Imaging: Abd US IMPRESSION: 1. Cholelithiasis. 2. Hepatic steatosis. 3. Mild splenomegaly. PE: GEN: NAD LUNGS: CTAB HEART: RRR ABD: NABS, S/ND/NT NEURO/PSYCH: A & O 3 A/P: LUQ/left chest pain, n/v/hematemesis - resolved Cholelithiasis, hepatic steatosis, mild splenomegaly -- Awaiting HIDA w/o EF. She'd like to go home - will review w/ Dr. Oh. We discussed continuing PPI at least for a few months, consider outpt EGD. Update - d/w Dr. Oh - will ask surgery to see re: gallstones. Justicifation of Admission Dx: Justifications for Admission: Justification of Admission Dx: Yes SHANTEL BLAKE Aug 02, 2020 10:40
--- NOTE | 2020-08-02 13:02 | RAD ---
HEPATOBILIARY SCAN 08/02/2020 12:58 PM History: Reason cholelithiasis Procedure: Serial static images are obtained of the liver and biliary system in the frontal projectio n following IV administration of 5 mCi of Technetium 99m Choletec. Imaging over the abdomen was then performed for approximately 1 hour. Findings: There is prompt hepatic clearance of tracer from the blood pool. There is homogeneous distr ibution throughout the liver. The gallbladder appears to be visualized at approximately 50 minutes. E xcretion of radiotracer into appears to be the duodenum and proximal small bowel is seen. Morphine wa s not administered secondary to a reported allergy. IMPRESSION: Visualization of what appears to be the gallbladder approximately 50 minutes. Morphine no t administered secondary to allergy. Electronically signed by: Harry Jin MD (08/02/2020 1:00 PM) [id number]
[2020-08-02 15:00] VITALS: BP 151/77
[2020-08-02] MEDS: ONDANSETRON PF 4 MG/2 ML VIAL. IVP PRN (15:16)
--- NOTE | 2020-08-02 15:51 | PDOC2 ---
CONSULT Date of Consult Date of Consult DATE: 08/02/20 TIME: 15:42 Reason for Consult Reason for Consult: LUQ abd pain, gallstones Referring Physician Referring Physician: Dr. Oh Identification/Chief Complaint Chief Complaint LUQ abd pain, hemetemesis Source Source: Chart review, Patient History of Present Illness Reason for Visit: 45 yo F with c/o LUQ abd pain and coughing up blood. Admitted and treated with PPI with improvement in pain. Some continued nausea. Would like to go home. Past Medical History Cardiovascular: HTN Rheumatologic: Other Past Surgical History Past Surgical History: , Hysterectomy Family History Family History: No Significant Social History No ALCOHOL: none Drugs: None Current Problem List Problem List Problems Medical Problems: (1) Abdominal pain Status: Acute (2) Gastritis Status: Acute Current Medications Current Medications Current Medications Pantoprazole Sodium (PROTONIX VIAL for IV PUSH) 40 mg 1X ONCE IVP ; Start 08/01/20 at 11:45; Stop 08/01/20 at 11:46; Status DC Fentanyl Citrate (Fentanyl 2ml Vial) 75 mcg 1X ONCE IVP ; Start 08/01/20 at 11:45; Stop 08/01/20 at 11:46; Status DC Ondansetron HCl (Zofran) 4 mg PRN Q8HRS PRN IV NAUSEA/VOMITING; Start 08/01/20 at 13:30; Stop 08/02/20 at 13:29; Status DC Fentanyl Citrate (Fentanyl 2ml Vial) 50 mcg PRN Q1HR PRN IV PAIN Last administered on 08/01/20at 20:39; Start 08/01/20 at 13:30; Stop 08/02/20 at 13:29; Status DC Pantoprazole Sodium (PROTONIX VIAL for IV PUSH) 40 mg BIDAC IVP Last administered on 08/02/20at 09:40; Start 08/01/20 at 16:30; Stop 08/02/20 at 10:41; Status DC Sucralfate (Carafate) 1 gm QIDACHS PO Last administered on 08/01/20at 20:38; Start 08/01/20 at 16:30 Multi-Ingredient Mouthwash/Gargle (Gi Cocktail) 20 ml PRN QID PRN PO chest and abd pain; Start 08/01/20 at 15:00 Sennosides (Senna) 17.2 mg PRN BID PRN PO CONSTIPATION; Start 08/01/20 at 15:15 Docusate Sodium (Colace) 100 mg PRN DAILY PRN PO HARD STOOLS; Start 08/01/20 at 15:15 Ondansetron HCl (Zofran) 4 mg PRN Q6HRS PRN IVP NAUSEA/VOMITING Last administered on 08/02/20at 15:16; Start 08/01/20 at 15:15 Dextrose (Dextrose 50%-Water Syringe) 12.5 gm PRN Q15MIN PRN IV SEE COMMENTS; Start 08/01/20 at 15:15 Sodium Chloride 1,000 ml @ 100 mls/hr Q10H IV Last administered on 08/02/20at 02:06; Start 08/01/20 at 15:15 Acetaminophen (Tylenol) 650 mg PRN Q4HRS PRN PO TEMP OVER 100.4F OR MILD PAIN; Start 08/01/20 at 15:15 Pantoprazole Sodium (Protonix) 40 mg DAILYAC PO ; Start 08/03/20 at 07:30 Active Scripts Active Reported Estrace (Estradiol) 1 Mg Tablet 1 Tab PO DAILY Effexor Xr (Venlafaxine Hcl) 150 Mg Cap.er.24h 0.5 Cap PO DAILY Allergies Allergies: Coded Allergies: Sulfa (Sulfonamide Antibiotics) (Verified Allergy, Severe, ANAPHALAXIS, 08/01/20) Uhmagtv-Hfu-Exn Reductase Inhibitor (Verified Allergy, Intermediate, MUSCLE PAIN, 08/01/20) morphine (Verified Adverse Reaction, Intermediate, VOMIT, 08/01/20) ROS Gastrointestinal: Yes Abdominal Pain, Yes Other (hemetemesis) Physical Exam General: Alert, Oriented X3, Cooperative, No acute distress HEENT: Atraumatic Lungs: Normal air movement Abdomen: Soft, No tenderness, Other (obese) Extremities: No clubbing, No cyanosis Skin: No rashes, No breakdown Neuro: Normal speech, Sensation intact Psych/Mental Status: Mental status NL, Mood NL Vitals VITALS Vital Signs Date Time Temp Pulse Resp B/P (MAP) Pulse Ox O2 Delivery O2 Flow Rate FiO2 08/02/20 15:00 98.4 71 16 151/77 (101) 99 Room Air 98.4 Labs Labs Laboratory Tests Test 08/01/20 11:04 3/11/21 11:34 08/02/20 05:50 Urine Collection Type Void Urine Color Yellow Urine Clarity Clear Urine pH 7.0 (<5.0-8.0) Urine Specific [place] <=1.005 (1.000-1.030) Urine Protein Negative mg/dL (NEG-TRACE) Urine Glucose (UA) Negative mg/dL (NEG) Urine Ketones (Stick) Negative mg/dL (NEG) Urine Blood Negative (NEG) Urine Nitrite Negative (NEG) Urine Bilirubin Negative (NEG) Urine Urobilinogen Dipstick 0.2 mg/dL (0.2 mg/dL) Urine Leukocyte Esterase Negative (NEG) Urine RBC 0 /HPF (0-2) Urine WBC 0 /HPF (0-4) Urine Squamous Epithelial Cells Mod /LPF Urine Bacteria 0 /HPF (0-FEW) White Blood Count 4.3 x10^3/uL (4.0-11.0) 3.8 x10^3/uL (4.0-11.0) Red Blood Count 4.30 x10^6/uL (3.50-5.40) 4.18 x10^6/uL (3.50-5.40) Hemoglobin 12.7 g/dL (12.0-15.5) 12.5 g/dL (12.0-15.5) Hematocrit 36.4 % (36.0-47.0) 35.8 % (36.0-47.0) Mean Corpuscular Volume 85 fL (79-100) 86 fL (79-100) Mean Corpuscular Hemoglobin 30 pg (25-35) 30 pg (25-35) Mean Corpuscular Hemoglobin Concent 35 g/dL (31-37) 35 g/dL (31-37) Red Cell Distribution Width 12.9 % (11.5-14.5) 12.2 % (11.5-14.5) Platelet Count 228 x10^3/uL (140-400) 222 x10^3/uL (140-400) Neutrophils (%) (Auto) 51 % (31-73) 52 % (31-73) Lymphocytes (%) (Auto) 41 % (24-48) 40 % (24-48) Monocytes (%) (Auto) 8 % (0-9) 8 % (0-9) Eosinophils (%) (Auto) 0 % (0-3) 0 % (0-3) Basophils (%) (Auto) 0 % (0-3) 0 % (0-3) Neutrophils # (Auto) 2.2 x10^3/uL (1.8-7.7) 2.0 x10^3/uL (1.8-7.7) Lymphocytes # (Auto) 1.8 x10^3/uL (1.0-4.8) 1.5 x10^3/uL (1.0-4.8) Monocytes # (Auto) 0.4 x10^3/uL (0.0-1.1) 0.3 x10^3/uL (0.0-1.1) Eosinophils # (Auto) 0.0 x10^3/uL (0.0-0.7) 0.0 x10^3/uL (0.0-0.7) Basophils # (Auto) 0.0 x10^3/uL (0.0-0.2) 0.0 x10^3/uL (0.0-0.2) Prothrombin Time 13.1 SEC (11.7-14.0) Prothromb Time International Ratio 1.0 (0.8-1.1) Activated Partial Thromboplast Time 28 SEC (24-38) Sodium Level 138 mmol/L (136-145) 143 mmol/L (136-145) Potassium Level 3.8 mmol/L (3.5-5.1) 3.8 mmol/L (3.5-5.1) Chloride Level 104 mmol/L (98-107) 105 mmol/L (98-107) Carbon Dioxide Level 28 mmol/L (21-32) 30 mmol/L (21-32) Anion Gap 6 (6-14) 8 (6-14) Blood Urea Nitrogen 14 mg/dL (7-20) 11 mg/dL (7-20) Creatinine 0.8 mg/dL (0.6-1.0) 0.8 mg/dL (0.6-1.0) Estimated GFR (Cockcroft-Gault) 93.0 93.0 BUN/Creatinine Ratio 18 (6-20) Glucose Level 86 mg/dL (70-99) 93 mg/dL (70-99) Calcium Level 9.0 mg/dL (8.5-10.1) 8.3 mg/dL (8.5-10.1) Total Bilirubin 0.3 mg/dL (0.2-1.0) Aspartate Amino Transf (AST/SGOT) 26 U/L (15-37) Alanine Aminotransferase (ALT/SGPT) 63 U/L (14-59) Alkaline Phosphatase 67 U/L (46-116) Total Protein 7.1 g/dL (6.4-8.2) Albumin 3.8 g/dL (3.4-5.0) Albumin/Globulin Ratio 1.2 (1.0-1.7) Phosphorus Level 3.4 mg/dL (2.6-4.7) Magnesium Level 2.3 mg/dL (1.8-2.4) Laboratory Tests Test 08/02/20 05:50 White Blood Count 3.8 x10^3/uL (4.0-11.0) Red Blood Count 4.18 x10^6/uL (3.50-5.40) Hemoglobin 12.5 g/dL (12.0-15.5) Hematocrit 35.8 % (36.0-47.0) Mean Corpuscular Volume 86 fL (79-100) Mean Corpuscular Hemoglobin 30 pg (25-35) Mean Corpuscular Hemoglobin Concent 35 g/dL (31-37) Red Cell Distribution Width 12.2 % (11.5-14.5) Platelet Count 222 x10^3/uL (140-400) Neutrophils (%) (Auto) 52 % (31-73) Lymphocytes (%) (Auto) 40 % (24-48) Monocytes (%) (Auto) 8 % (0-9) Eosinophils (%) (Auto) 0 % (0-3) Basophils (%) (Auto) 0 % (0-3) Neutrophils # (Auto) 2.0 x10^3/uL (1.8-7.7) Lymphocytes # (Auto) 1.5 x10^3/uL (1.0-4.8) Monocytes # (Auto) 0.3 x10^3/uL (0.0-1.1) Eosinophils # (Auto) 0.0 x10^3/uL (0.0-0.7) Basophils # (Auto) 0.0 x10^3/uL (0.0-0.2) Sodium Level 143 mmol/L (136-145) Potassium Level 3.8 mmol/L (3.5-5.1) Chloride Level 105 mmol/L (98-107) Carbon Dioxide Level 30 mmol/L (21-32) Anion Gap 8 (6-14) Blood Urea Nitrogen 11 mg/dL (7-20) Creatinine 0.8 mg/dL (0.6-1.0) Estimated GFR (Cockcroft-Gault) 93.0 Glucose Level 93 mg/dL (70-99) Calcium Level 8.3 mg/dL (8.5-10.1) Phosphorus Level 3.4 mg/dL (2.6-4.7) Magnesium Level 2.3 mg/dL (1.8-2.4) Images Images HIDA wnl, US with gallstones and hepatomegaly, splenomegaly Assessment/Plan Assessment/Plan LUQ abd pain would favor gastris as source of pain, given location, blood and improvement with PPI. OK to d/c consider elective cholecystectomy if not improved. Thanks for consult! EDEN RODAS MD Aug 02, 2020 15:51
--- NOTE | 2020-08-02 16:06 | PDOC3 ---
Discharge Summary Date of Admission: Aug 01, 2020 Date of Discharge: Aug 02, 2020 Follow-Up: 3-5 days Admitting Diagnosis comment: HOSPITAL COURSE CONSULTS GI, GEN SURGERY COMPLICATIONS NONE D/C CONDITION GOOD D/C DIET LOW FAT D/C MEDS SEE MAR ACTIVITY TOLERATED Chief Complaint Chief Complaint RUQ PAIN Images: Images Abdominal x-ray IMPRESSION: 1. No acute pulmonary finding. 2. Nonobstructive bowel gas pattern DISCHARGE DX Assessment/Plan Intractable nausea vomiting, possible gastritis versus gastric ulcer Elevated ALT History of migraines History of chronic urticaria, currently on Xolair shots PLAN Admit to medicine for further management Unable to discharge home due to unable to tolerate foods or liquids. GI consult SURGERY CONSULT We will try clear liquids per GI Pending EGD evaluation possible inpatient versus outpatient Contraindicated for DVT prophylaxis Protonix GI prophylaxis ADA diet Full code Discussed with RN and SW Disposition inpatient management as above Surrogate decision maker is the consider elective cholecystectomy if not improved. 3-12 HOME TODAY ON PPI D/C PLANNING 36 MIN Justifications for Admission Justifications for Admission Other Justification History of Present Illness History of Present Illness Chief Complaint: Chief Complain: Nausea vomiting History of Present Illness: HPI: Patient is a 45-year-old female with past medical history of dyslipidemia, migraines and bradycardia who presents with intractable nausea vomiting 4 days ago. She was seen at [facility] with increasing nausea vomiting and they sent her home with PPI and sucralfate. She went home and felt somewhat better but she continued to have vomiting that day that got worse. The color of her vomit initially looked that strawberry shake but became very red and then eventually coffee-ground in color. Patient has associated epigastric pain and lethargy. She describes her abdominal pain as stabbing that undulates up and down with intensity. Pain is worse after eating. Patient did have normal stools and was formed. She did have a loose watery stool this morning. Denies any bloody or stool or tarry stools. is also in the room and states that he also had some GI symptoms and they had fast food for 2 nights. He is unsure whether this was related or not but wanted to put his input. On normal days. Patient us smiley does not have any heartburn with eating foods and never has had any diagnosis of gastric reflux disease. The past year patient does express some dysphagia with eating certain foods. However, she does denies any odynophagia chronic nausea vomiting weight loss diarrhea or constipation. She has never had a EGD or colonoscopy. Past Medical/Surgical History: PMH/PSH: Past Medical History: Migraines Past Surgical History: , Hysterectomy Allergies: Allergies: Coded Allergies: Sulfa (Sulfonamide Antibiotics) (Verified Allergy, Severe, ANAPHALAXIS, 08/01/20) Wpwhemz-Blc-Eyy Reductase Inhibitor (Verified Allergy, Intermediate, MUSCLE PAIN, 08/01/20) morphine (Verified Adverse Reaction, Intermediate, VOMIT, 08/01/20) Family History: Family History: Reviewed with no relevant history Social History: Social History: Smoking Status: Never Smoker Alcohol Use: None Current Medications: Current Medications Current Medications Pantoprazole Sodium (PROTONIX VIAL for IV PUSH) 40 mg 1X ONCE IVP ; Start 08/01/20 at 11:45; Stop 08/01/20 at 11:46; Status DC Fentanyl Citrate (Fentanyl 2ml Vial) 75 mcg 1X ONCE IVP ; Start 08/01/20 at 11:45; Stop 08/01/20 at 11:46; Status DC Ondansetron HCl (Zofran) 4 mg PRN Q8HRS PRN IV NAUSEA/VOMITING; Start 08/01/20 at 13:30; Stop 08/02/20 at 13:29 Fentanyl Citrate (Fentanyl 2ml Vial) 50 mcg PRN Q1HR PRN IV PAIN; Start 08/01/20 at 13:30; Stop 08/02/20 at 13:29 Pantoprazole Sodium (PROTONIX VIAL for IV PUSH) 40 mg BIDAC IVP ; Start 08/01/20 at 16:30 Sucralfate (Carafate) 1 gm QIDACHS PO ; Start 08/01/20 at 16:30 Multi-Ingredient Mouthwash/Gargle (Gi Cocktail) 20 ml PRN QID PRN PO chest and abd pain; Start 08/01/20 at 15:00 ROS: Review of Systems Review of System REVIEW OF SYSTEMS: GENERAL: Denies weakness SKIN: No bruising, hair changes or rashes. EYES: No blurred, double or loss of vision. NOSE AND THROAT: No history of nosebleeds, hoarseness or sore throat. HEART: No history of palpitations, chest pain or shortness of breath on exertion. LUNGS: Denies cough, hemoptysis, wheezing or shortness of breath. GASTROINTESTINAL: Denies changes in appetite, nausea, vomiting, diarrhea or constipation. GENITOURINARY: No history of frequency, urgency, hesitancy or nocturia. NEUROLOGIC: Denies history of numbness, tingling, or tremor. PSYCHIATRIC: No history of panic, anxiety or depression. ENDOCRINE: No history of heat or cold intolerance, polyuria or polydipsia. EXTREMITIES: Denies joint pain, pain on walking or stiffness. Vitals Vitals Vital Signs Date Time Temp Pulse Resp B/P (MAP) Pulse Ox O2 Delivery O2 Flow Rate FiO2 08/02/20 07:00 97.7 69 16 137/85 (102) 97 Room Air 97.7 Physical Exam Physical Exam Physcial Exam: GEN: No apparent distress. Alert and oriented HEENT: Normal cephalic, atraumatic, external auditory canals are patent EYES: Extraocular muscles are intact, pupil are equally round and reactive to light and accommodation MUSCULOSKELETAL: Well developed , well nourished, good range of motion ENDOCRINE: No thyromegaly was palpated LYMPHATICS: No cervical chain or axillary nodes were noted HEMATOPOIETIC: No bruising NECK: Supple, no JVD, no thyromegaly was noted LUNGS: Clear to auscultation in all lung patrick without rhonchi or wheezing HEART: RRR, S!, S2 present. Peripheral pulses intact, no obvious murmurs noted ABDOMEN: Soft, nontender. Positive bowel sounds, no organomegaly, normal bowel sounds EXTREMITIES: Without clubbing, cyanosis, or edema. Pedal pulses intact. Negative Homans sign NEUROLOGIC: Normal speech and tone. A&O x 3, moves all extremities, no obvious focal deficits PSYCHIATRIC: Normal affect, normal mood. Stable SKIN: No ulcerations or rashes, good skin turgor, no jaundice VASCULAR: Good capillary refill, neurovascular bundle appears to be intact General: Alert, Oriented X3, Cooperative, No acute distress Heart: Regular rate Lungs: Clear Abdomen: Normal bowel sounds, Soft Extremities: No clubbing, No cyanosis FINAL DIAGNOSIS Problems Medical Problems: (1) Abdominal pain Status: Acute (2) Gastritis Status: Acute Brief Hospital Course Ms. Magallon is a 45 old [sex] who presented with [ABDOMINAL PAIN, GASTRITIS ] CONDITION AT DISCHARGE: Improved Discharge Medications Current Medications Pantoprazole Sodium (PROTONIX VIAL for IV PUSH) 40 mg 1X ONCE IVP ; Start 08/01/20 at 11:45; Stop 08/01/20 at 11:46; Status DC Fentanyl Citrate (Fentanyl 2ml Vial) 75 mcg 1X ONCE IVP ; Start 08/01/20 at 11:45; Stop 08/01/20 at 11:46; Status DC Ondansetron HCl (Zofran) 4 mg PRN Q8HRS PRN IV NAUSEA/VOMITING; Start 08/01/20 at 13:30; Stop 08/02/20 at 13:29; Status DC Fentanyl Citrate (Fentanyl 2ml Vial) 50 mcg PRN Q1HR PRN IV PAIN Last administered on 08/01/20at 20:39; Start 08/01/20 at 13:30; Stop 08/02/20 at 13:29 ; Status DC Pantoprazole Sodium (PROTONIX VIAL for IV PUSH) 40 mg BIDAC IVP Last administered on 08/02/20at 09:40; Start 08/01/20 at 16:30; Stop 08/02/20 at 10:41; Status DC Sucralfate (Carafate) 1 gm QIDACHS PO Last administered on 08/01/20at 20:38; St art 08/01/20 at 16:30 Multi-Ingredient Mouthwash/Gargle (Gi Cocktail) 20 ml PRN QID PRN PO chest and abd pain; Start 08/01/20 at 15:00 Sennosides (Senna) 17.2 mg PRN BID PRN PO CONSTIPATION; Start 08/01/20 at 15:15 Docusate Sodium (Colace) 100 mg PRN DAILY PRN PO HARD STOOLS; Start 08/01/20 at 15:15 Ondansetron HCl (Zofran) 4 mg PRN Q6HRS PRN IVP NAUSEA/VOMITING Last administered on 08/02/20at 15:16; Start 08/01/20 at 15:15 Dextrose (Dextrose 50%-Water Syringe) 12.5 gm PRN Q15MIN PRN IV SEE COMMENTS; Start 08/01/20 at 15:15 Sodium Chloride 1,000 ml @ 100 mls/hr Q10H IV Last administered on 08/02/20at 02:06; Start 08/01/20 at 15:15 Acetaminophen (Tylenol) 650 mg PRN Q4HRS PRN PO TEMP OVER 100.4F OR MILD PAIN; Start 08/01/20 at 15:15 Pantoprazole Sodium (Protonix) 40 mg DAILYAC PO ; Start 08/03/20 at 07:30 Active Scripts Active Reported Estrace (Estradiol) 1 Mg Tablet 1 Tab PO DAILY Effexor Xr (Venlafaxine Hcl) 150 Mg Cap.er.24h 0.5 Cap PO DAILY Vital Signs Vital Signs Date Time Temp Pulse Resp B/P (MAP) Pulse Ox O2 Delivery O2 Flow Rate FiO2 08/02/20 15:00 98.4 71 16 151/77 (101) 99 Room Air 98.4 Labs Laboratory Tests Test 08/01/20 11:04 08/01/20 11:34 08/02/20 05:50 Urine Collection Type Void Urine Color Yellow Urine Clarity Clear Urine pH 7.0 (<5.0-8.0) Urine Specific [place] <=1.005 (1.000-1.030) Urine Protein Negative mg/dL (NEG-TRACE) Urine Glucose (UA) Negative mg/dL (NEG) Urine Ketones (Stick) Negative mg/dL (NEG) Urine Blood Negative (NEG) Urine Nitrite Negative (NEG) Urine Bilirubin Negative (NEG) Urine Urobilinogen Dipstick 0.2 mg/dL (0.2 mg/dL) Urine Leukocyte Esterase Negative (NEG) Urine RBC 0 /HPF (0-2) Urine WBC 0 /HPF (0-4) Urine Squamous Epithelial Cells Mod /LPF Urine Bacteria 0 /HPF (0-FEW) White Blood Count 4.3 x10^3/uL (4.0-11.0) 3.8 x10^3/uL (4.0-11.0) Red Blood Count 4.30 x10^6/uL (3.50-5.40) 4.18 x10^6/uL (3.50-5.40) Hemoglobin 12.7 g/dL (12.0-15.5) 12.5 g/dL (12.0-15.5) Hematocrit 36.4 % (36.0-47.0) 35.8 % (36.0-47.0) Mean Corpuscular Volume 85 fL (79-100) 86 fL (79-100) Mean Corpuscular Hemoglobin 30 pg (25-35) 30 pg (25-35) Mean Corpuscular Hemoglobin Concent 35 g/dL (31-37) 35 g/dL (31-37) Red Cell Distribution Width 12.9 % (11.5-14.5) 12.2 % (11.5-14.5) Platelet Count 228 x10^3/uL (140-400) 222 x10^3/uL (140-400) Neutrophils (%) (Auto) 51 % (31-73) 52 % (31-73) Lymphocytes (%) (Auto) 41 % (24-48) 40 % (24-48) Monocytes (%) (Auto) 8 % (0-9) 8 % (0-9) Eosinophils (%) (Auto) 0 % (0-3) 0 % (0-3) Basophils (%) (Auto) 0 % (0-3) 0 % (0-3) Neutrophils # (Auto) 2.2 x10^3/uL (1.8-7.7) 2.0 x10^3/uL (1.8-7.7) Lymphocytes # (Auto) 1.8 x10^3/uL (1.0-4.8) 1.5 x10^3/uL (1.0-4.8) Monocytes # (Auto) 0.4 x10^3/uL (0.0-1.1) 0.3 x10^3/uL (0.0-1.1) Eosinophils # (Auto) 0.0 x10^3/uL (0.0-0.7) 0.0 x10^3/uL (0.0-0.7) Basophils # (Auto) 0.0 x10^3/uL (0.0-0.2) 0.0 x10^3/uL (0.0-0.2) Prothrombin Time 13.1 SEC (11.7-14.0) Prothromb Time International Ratio 1.0 (0.8-1.1) Activated Partial Thromboplast Time 28 SEC (24-38) Sodium Level 138 mmol/L (136-145) 143 mmol/L (136-145) Potassium Level 3.8 mmol/L (3.5-5.1) 3.8 mmol/L (3.5-5.1) Chloride Level 104 mmol/L (98-107) 105 mmol/L (98-107) Carbon Dioxide Level 28 mmol/L (21-32) 30 mmol/L (21-32) Anion Gap 6 (6-14) 8 (6-14) Blood Urea Nitrogen 14 mg/dL (7-20) 11 mg/dL (7-20) Creatinine 0.8 mg/dL (0.6-1.0) 0.8 mg/dL (0.6-1.0) Estimated GFR (Cockcroft-Gault) 93.0 93.0 BUN/Creatinine Ratio 18 (6-20) Glucose Level 86 mg/dL (70-99) 93 mg/dL (70-99) Calcium Level 9.0 mg/dL (8.5-10.1) 8.3 mg/dL (8.5-10.1) Total Bilirubin 0.3 mg/dL (0.2-1.0) Aspartate Amino Transf (AST/SGOT) 26 U/L (15-37) Alanine Aminotransferase (ALT/SGPT) 63 U/L (14-59) Alkaline Phosphatase 67 U/L (46-116) Total Protein 7.1 g/dL (6.4-8.2) Albumin 3.8 g/dL (3.4-5.0) Albumin/Globulin Ratio 1.2 (1.0-1.7) Phosphorus Level 3.4 mg/dL (2.6-4.7) Magnesium Level 2.3 mg/dL (1.8-2.4) Laboratory Tests Test 08/02/20 05:50 White Blood Count 3.8 x10^3/uL (4.0-11.0) Red Blood Count 4.18 x10^6/uL (3.50-5.40) Hemoglobin 12.5 g/dL (12.0-15.5) Hematocrit 35.8 % (36.0-47.0) Mean Corpuscular Volume 86 fL (79-100) Mean Corpuscular Hemoglobin 30 pg (25-35) Mean Corpuscular Hemoglobin Concent 35 g/dL (31-37) Red Cell Distribution Width 12.2 % (11.5-14.5) Platelet Count 222 x10^3/uL (140-400) Neutrophils (%) (Auto) 52 % (31-73) Lymphocytes (%) (Auto) 40 % (24-48) Monocytes (%) (Auto) 8 % (0-9) Eosinophils (%) (Auto) 0 % (0-3) Basophils (%) (Auto) 0 % (0-3) Neutrophils # (Auto) 2.0 x10^3/uL (1.8-7.7) Lymphocytes # (Auto) 1.5 x10^3/uL (1.0-4.8) Monocytes # (Auto) 0.3 x10^3/uL (0.0-1.1) Eosinophils # (Auto) 0.0 x10^3/uL (0.0-0.7) Basophils # (Auto) 0.0 x10^3/uL (0.0-0.2) Sodium Level 143 mmol/L (136-145) Potassium Level 3.8 mmol/L (3.5-5.1) Chloride Level 105 mmol/L (98-107) Carbon Dioxide Level 30 mmol/L (21-32) Anion Gap 8 (6-14) Blood Urea Nitrogen 11 mg/dL (7-20) Creatinine 0.8 mg/dL (0.6-1.0) Estimated GFR (Cockcroft-Gault) 93.0 Glucose Level 93 mg/dL (70-99) Calcium Level 8.3 mg/dL (8.5-10.1) Phosphorus Level 3.4 mg/dL (2.6-4.7) Magnesium Level 2.3 mg/dL (1.8-2.4) Allergies Allergies Coded Allergies Type Severity Reaction Last Updated Verified Sulfa (Sulfonamide Antibiotics) Allergy Severe ANAPHALAXIS 08/01/20 Yes [id number] Reductase Inhibitor Allergy Intermediate MUSCLE PAIN 08/01/20 Yes morphine Adverse Reaction Intermediate VOMIT 08/01/20 Yes Disposition/Orders: D/C to Home Justicifation of Admission Dx: Justifications for Admission: Justification of Admission Dx: No STEPHEN QUICK MD Aug 02, 2020 16:06
[2020-08-02] MEDS ORDERED: ACET325T21 PO (16:08)
[2020-08-02] MEDS ORDERED: Lido:Maalox 1:1 PO (16:08)
[2020-08-02] MEDS ORDERED: PANT40TA77 PO (16:08)
[2020-08-02] MEDS ORDERED: SUCR1ORA5 PO (16:08)
--- NOTE | 2020-08-02 16:09 | DISCH ---
DISCHARGE INSTRUCTIONS Condition on Discharge Condition on Discharge: Stable Activity After Discharge Activity Instructions for Disc: Activity as tolerated Lifting Instructions after Dis: No heavy lifting, No pulling or pushing Exercise Instruction after Dis: Walk 15 min, 3 x per day Driving Instructions after Dis: Do not drive today Diet after Discharge Diet after Discharge: Regular Liquid Texture: Thin Liquid Checks after Discharge Checks after discharge: Check blood press - daily Contacting the DR. after DC Call your doctor for: If your condition worsens Treatment/Equipment after DC Adaptive Equipment Issued: None STEPHEN QUICK MD Aug 02, 2020 16:09
--- NOTE | 2020-08-02 16:57 | NUR ---
pt discharged home with family. meds and follow up reviewed. IV removed, cath intact. pt stable upon dc
[2020-08-03] MEDS ORDERED: PANTOPRAZOLE 40 MG TABLET.DR. PO SCH (07:30)
== END 2020-08-02 16:58 | disposition home or self-care (01) | DRG 384 ==
LOC: ER 10:48 → 4 NORTH 12:38
PROVIDERS: ADMIT Internal Medicine; ATTEND Internal Medicine
DX: K25.9 Gastric ulcer, unspecified as acute or chronic, without hemorrhage or perforation (principal); K29.70 Gastritis, unspecified, without bleeding; G43.909 Migraine, unspecified, not intractable, without status migrainosus; E78.5 Hyperlipidemia, unspecified; I10 Essential (primary) hypertension; Z88.8 Allergy status to other drugs, medicaments and biological substances; Z88.2 Allergy status to sulfonamides; Z88.5 Allergy status to narcotic agent; Z90.710 Acquired absence of both cervix and uterus; Z98.891 History of uterine scar from previous surgery; L50.9 Urticaria, unspecified; K76.0 Fatty (change of) liver, not elsewhere classified; K80.20 Calculus of gallbladder without cholecystitis without obstruction; R16.1 Splenomegaly, not elsewhere classified
CPT/HCPCS: 36415; 74022; 76700; 78226; 80048; 80053; 81001; 83735; 84100; 85025; 85610; 85730; 86850; 86900; 86901; 96374; 99285; A9537; C9113; J2405; J3010; J7030; G0378